=== PATIENT | male | born 1950 | race Caucasian/White ===

== ENCOUNTER → 2017-01-07 | Outpatient (CLI) | payer OTHER ==
[~2017-01-07] MED LIST: BICALUTAMIDE50 MG PO; CIPROFLOXACIN500 M1 PO; CONSTULOSE10 GM/15 M PO; DEXAMETHASONE4 MG PO; DOCUSATE SODIU100 MG PO; ONDANSETRON HCL8 MG PO; OXYCODONE HCL10 MG PO; PERCOCET 5/31 TABLET PO; PROCHLORPERAZIN10 MG PO; ROXICODONE5 MG PO; SENNA8.6 M1 PO
== END | disposition home or self-care (01) ==
LOC: NUC 08:52
DX: C61 Malignant neoplasm of prostate (principal); C79.51 Secondary malignant neoplasm of bone
CPT/HCPCS: 78306; A9503

== ENCOUNTER 2017-02-03 17:02 | Emergency (ER) | payer OTHER ==
[~2017-02-03] VITALS: Ht 172.7 cm; Wt 76.4 kg
[2017-02-03] MEDS ORDERED: BACLOFEN10 MG PO (21:04)
[2017-02-03 21:25] VITALS: BP 140/98
== END 2017-02-03 21:26 | disposition home or self-care (01) ==
LOC: EME 17:02
DX: M54.5 Low back pain (principal); M62.830 Muscle spasm of back; C61 Malignant neoplasm of prostate; C79.51 Secondary malignant neoplasm of bone
CPT/HCPCS: 99281; 99284; J1885; J3360

== ENCOUNTER 2017-07-07 14:24 | Inpatient (IN) | payer OTHER ==
[~2017-07-07] VITALS: Ht 172.7 cm; Wt 71.6 kg
[~2017-07-07 14:24] MED LIST changes: +BACLOFEN10 MG PO
[2017-07-07 15:24] LABS: EOSINOPHIL (%) 1.3 % (0-5); EOSINOPHIL COUNT 0.1 K/uL (0-0.3); IMMATURE GRANULOCYTE (%) 1.1 % (0.0-0.7); INSTRUMENT ABS NEUTROPHIL CT 2.8 K/uL; LYMPHOCYTE COUNT 0.2 K/uL (1.0-2.8); MCH 31.3 PG (29.0-34.0); MCHC 33.7 G/DL (30.0-36.0); MCV 92.8 FL (86-99); MEAN PLAT.VOLUME 8.8 uM^3 (9.0-12.4); MONOCYTE (%) 17.5 % (3-12); MONOCYTE COUNT 0.7 K/uL (0-0.8); NEUTROPHIL (%) 74.8 % (45-76); NEUTROPHIL COUNT 2.8 K/uL (1.8-6.4); PLATELET COUNT 111 K/uL (156-360); RBC DIS.WIDTH-CV 14.9 % (11.8-14.6); RBC DIS.WIDTH-SD 51.2 % (39-53); RED BLOOD COUNT 3.77 M/uL (4.00-5.50); WHITE BLOOD COUNT 3.8 K/uL (4.1-10.2)
[2017-07-07 15:29] LABS: CHLORIDE 113 mEq/L (99-109); POTASSIUM 3.8 mEq/L (3.7-5.4); SODIUM 146 mEq/L (136-147)
[2017-07-07 15:31] LABS: GLUCOSE 99 mg/dL (70-99)
[2017-07-07 15:32] LABS: ANION GAP 10 MEQ/L (2-14)
[2017-07-07 15:35] LABS: GFR ESTIMATE (CALCULATED) > 59 mL/min/
[2017-07-07 15:36] LABS: UREA NITROGEN (BUN) 12 mg/dL (9-23)
[2017-07-07] MEDS ORDERED: OXYCODONE HCL10 MG PO (18:22)
[2017-07-07] MEDS ORDERED: FENTANYL1 EAC2 TD (18:22)
[2017-07-07 23:07] VITALS: BP 131/81
[2017-07-08 04:05] VITALS: BP 139/82
[2017-07-08 06:45] LABS: HEMATOCRIT 38.1 % (38.0-50.0); MCH 32.3 PG (29.0-34.0); MCHC 34.1 G/DL (30.0-36.0); MCV 94.8 FL (86-99); MEAN PLAT.VOLUME 8.5 uM^3 (9.0-12.4); PLATELET COUNT 96 K/uL (156-360); RBC DIS.WIDTH-CV 14.7 % (11.8-14.6); RBC DIS.WIDTH-SD 50.7 % (39-53); RED BLOOD COUNT 4.02 M/uL (4.00-5.50); WHITE BLOOD COUNT 5.1 K/uL (4.1-10.2)
[2017-07-08 07:10] LABS: ANION GAP 10 MEQ/L (2-14); CHLORIDE 110 MEQ/L (99-109); GFR ESTIMATE (CALCULATED) > 59 mL/min/; GLUCOSE 133 mg/dL (70-99); POTASSIUM 4.2 MEQ/L (3.7-5.4); SAMPLE HEMOLYSIS CHECK 0; SAMPLE ICTERIC CHECK 0; SAMPLE LIPEMIA CHECK 0; SODIUM 144 MEQ/L (136-147); UREA NITROGEN (BUN) 12 mg/dL (9-23)
[2017-07-08 07:25] VITALS: BP 140/75
[2017-07-08 07:35] LABS: ADD MIUA? NO; BILIRUBIN NEGATIVE; BLOOD NEGATIVE; COLOR YELLOW ((YELLOW)); GLUCOSE (STRIP) NEGATIVE; KETONES NEGATIVE; LEUKOCYTES NEGATIVE; NITRITE NEGATIVE; PROTEIN (STRIP) NEGATIVE; SPECIFIC GRAVITY 1.018 (1.000-1.030); UCUL ADDED? NO; UROBILINOGEN 0.2 MG/DL (0.2-1.0)
[2017-07-08] MEDS ORDERED: FENTANYL1 EAC2 TD (09:36)
[2017-07-08 11:00] VITALS: BP 124/67
[2017-07-08] MEDS ORDERED: COMPAZINE10 MG PO (11:00)
[2017-07-08] MEDS ORDERED: SENOKOT S,PE1 TABLET PO (11:00)
[2017-07-08] MEDS ORDERED: ADVIL,NUPRIN,M200 MG PO (11:01)
[2017-07-08] MEDS ORDERED: MILK OF MAGN PO (11:02)
[2017-07-08 16:07] VITALS: BP 115/60
[2017-07-08 22:51] VITALS: BP 125/76
[2017-07-09 06:34] LABS: MCHC 33.4 G/DL (30.0-36.0); MCV 92.8 FL (86-99); MEAN PLAT.VOLUME 8.5 uM^3 (9.0-12.4); PLATELET COUNT 105 K/uL (156-360); RBC DIS.WIDTH-CV 14.4 % (11.8-14.6); RBC DIS.WIDTH-SD 48.1 % (39-53); RED BLOOD COUNT 3.77 M/uL (4.00-5.50)
[2017-07-09 06:56] LABS: ANION GAP 7 MEQ/L (2-14); CHLORIDE 106 MEQ/L (99-109); GFR ESTIMATE (CALCULATED) > 59 mL/min/; GLUCOSE 116 mg/dL (70-99); POTASSIUM 4.4 MEQ/L (3.7-5.4); SAMPLE HEMOLYSIS CHECK 0; SAMPLE ICTERIC CHECK 0; SAMPLE LIPEMIA CHECK 0; SODIUM 139 MEQ/L (136-147); UREA NITROGEN (BUN) 13 mg/dL (9-23)
[2017-07-09 07:09] VITALS: BP 139/79
[2017-07-09 16:28] VITALS: BP 132/68
[2017-07-09 23:24] VITALS: BP 126/73
[2017-07-10 07:13] VITALS: BP 145/92
[2017-07-10] MEDS ORDERED: DECADRON4 MG PO (08:05)
== END 2017-07-10 14:28 | disposition home health service (06) | DRG 543 ==
LOC: EME 14:24 → EDOF 20:16 → 5EAST 20:16 → ENRESERV 20:19 → 5EAST 22:40 → ENPENDDIS 07-10 → 5EAST 07-10 14:28
PROVIDERS: Emergency Medicine; Hospitalist
DX: C79.51 Secondary malignant neoplasm of bone (principal); G95.29 Other cord compression; M48.04 Spinal stenosis, thoracic region; C61 Malignant neoplasm of prostate; G89.3 Neoplasm related pain (acute) (chronic); M21.379 Foot drop, unspecified foot; R27.0 Ataxia, unspecified; K59.00 Constipation, unspecified; M51.36 Other intervertebral disc degeneration, lumbar region; F41.9 Anxiety disorder, unspecified; Z92.3 Personal history of irradiation; Z92.21 Personal history of antineoplastic chemotherapy
CPT/HCPCS: 72157; 72158; 80048; 81003; 85025; 85027; 99281; 99285; J1100; J1650; J2060

== ENCOUNTER 2017-09-20 15:25 | Inpatient (IN) | payer OTHER ==
[~2017-09-20] VITALS: Ht 172.7 cm; Wt 67.6 kg
[~2017-09-20 15:25] MED LIST changes: +ADVIL,NUPRIN,M200 MG PO; +COMPAZINE10 MG PO; +DECADRON4 MG PO; +FENTANYL1 EAC2 TD; +MILK OF MAGN PO; +SENOKOT S,PE1 TABLET PO
[2017-09-20 16:44] LABS: EOSINOPHIL (%) 0.9 % (0-5); EOSINOPHIL COUNT 0.1 K/uL (0-0.3); HEMATOCRIT 30.6 % (38.0-50.0); IMMATURE GRANULOCYTE (%) 0.4 % (0.0-0.7); INSTRUMENT ABS NEUTROPHIL CT 6.6 K/uL; LYMPHOCYTE COUNT 0.2 K/uL (1.0-2.8); MCH 31.4 PG (29.0-34.0); MEAN PLAT.VOLUME 8.5 uM^3 (9.0-12.4); MONOCYTE (%) 13.1 % (3-12); NEUTROPHIL COUNT 6.6 K/uL (1.8-6.4); PLATELET COUNT 280 K/uL (156-360); RBC DIS.WIDTH-CV 13.7 % (11.8-14.6); RBC DIS.WIDTH-SD 48.3 % (39-53); RED BLOOD COUNT 3.22 M/uL (4.00-5.50)
[2017-09-20 16:51] LABS: INTER. NORMALIZED RATIO 1.1; PROTHROMBIN TIME 12.5 SEC (10.2-12.9)
[2017-09-20 16:53] LABS: CHLORIDE 101 mEq/L (99-109); POTASSIUM 3.9 mEq/L (3.7-5.4); SODIUM 132 mEq/L (136-147)
[2017-09-20 16:54] LABS: PTT 27.1 SEC (25-37)
[2017-09-20 16:55] LABS: GLUCOSE 115 mg/dL (70-99)
[2017-09-20 16:57] LABS: ANION GAP 7 MEQ/L (2-14); TOTAL BILIRUBIN 0.6 mg/dL (0.0-1.0)
[2017-09-20 16:59] LABS: ALKALINE PHOSPHATASE 76 IU/L (3-129); GFR ESTIMATE (CALCULATED) > 59 mL/min/
[2017-09-20 17:00] LABS: UREA NITROGEN (BUN) 6 mg/dL (9-23)
[2017-09-20 17:02] LABS: LIPASE 2 U/L (1.0-51.0)
[2017-09-20 17:05] LABS: TROP-I INTERPRETATION NEGATIVE; TROPONIN-I 0.01 ng/mL (0.0-0.30)
[2017-09-20 18:42] LABS: ADD MIUA? NO; BILIRUBIN NEGATIVE; BLOOD NEGATIVE; COLOR YELLOW ((YELLOW)); GLUCOSE (STRIP) NEGATIVE; KETONES 20; LEUKOCYTES NEGATIVE; NITRITE NEGATIVE; PROTEIN (STRIP) 30; SPECIFIC GRAVITY 1.019 (1.000-1.030); UCUL ADDED? NO; UROBILINOGEN 0.2 MG/DL (0.2-1.0)
[2017-09-20] MEDS ORDERED: ONDANSETRON HCL4 MG PO (20:53)
[2017-09-20 23:12] LABS: TROP-I INTERPRETATION NEGATIVE; TROPONIN-I < 0.01 ng/mL (0.0-0.30)
[2017-09-21] VITALS (7 sets, daily range): BP systolic 142–194; BP diastolic 64–91
[2017-09-21 06:02] LABS: HEMATOCRIT 30.2 % (38.0-50.0); MCH 31.8 PG (29.0-34.0); MCHC 33.8 G/DL (30.0-36.0); MCV 94.1 FL (86-99); MEAN PLAT.VOLUME 8.6 uM^3 (9.0-12.4); PLATELET COUNT 255 K/uL (156-360); RBC DIS.WIDTH-CV 13.5 % (11.8-14.6); RBC DIS.WIDTH-SD 46.7 % (39-53); RED BLOOD COUNT 3.21 M/uL (4.00-5.50); WHITE BLOOD COUNT 7.3 K/uL (4.1-10.2)
[2017-09-21 06:14] LABS: INTER. NORMALIZED RATIO 1.2; PROTHROMBIN TIME 13.3 SEC (10.2-12.9)
[2017-09-21 06:33] LABS: TROP-I INTERPRETATION NEGATIVE; TROPONIN-I < 0.01 ng/mL (0.0-0.30)
[2017-09-21 07:35] LABS: ALKALINE PHOSPHATASE 64 IU/L (3-129); CHLORIDE 102 MEQ/L (99-109); GLUCOSE 151 mg/dL (70-99); POTASSIUM 4.3 MEQ/L (3.7-5.4); SAMPLE HEMOLYSIS CHECK 0; SAMPLE ICTERIC CHECK 0; SAMPLE LIPEMIA CHECK 0; SODIUM 135 MEQ/L (136-147); TOTAL BILIRUBIN 0.6 MG/DL (0.0-1.0); UREA NITROGEN (BUN) 5 mg/dL (9-23)
[2017-09-21 08:13] LABS: GFR ESTIMATE (CALCULATED) > 59 mL/min/
[2017-09-21 08:16] LABS: ANION GAP 8 MEQ/L (2-14)
[2017-09-22 03:55] VITALS: BP 185/85
[2017-09-22 06:09] LABS: EOSINOPHIL (%) 0 % (0-5); HEMATOCRIT 30.7 % (38.0-50.0); IMMATURE GRANULOCYTE (%) 0.4 % (0.0-0.7); INSTRUMENT ABS NEUTROPHIL CT 7.1 K/uL; LYMPHOCYTE COUNT 0.2 K/uL (1.0-2.8); MCH 32.3 PG (29.0-34.0); MCHC 34.5 G/DL (30.0-36.0); MCV 93.6 FL (86-99); MEAN PLAT.VOLUME 8.7 uM^3 (9.0-12.4); MONOCYTE (%) 12.4 % (3-12); NEUTROPHIL (%) 84.9 % (45-76); NEUTROPHIL COUNT 7.1 K/uL (1.8-6.4); PLATELET COUNT 310 K/uL (156-360); RBC DIS.WIDTH-CV 13.8 % (11.8-14.6); RBC DIS.WIDTH-SD 47.3 % (39-53); RED BLOOD COUNT 3.28 M/uL (4.00-5.50); WHITE BLOOD COUNT 8.3 K/uL (4.1-10.2)
[2017-09-22 06:47] LABS: ANION GAP 10 MEQ/L (2-14); CHLORIDE 103 MEQ/L (99-109); GFR ESTIMATE (CALCULATED) > 59 mL/min/; GLUCOSE 136 mg/dL (70-99); POTASSIUM 3.8 MEQ/L (3.7-5.4); SAMPLE HEMOLYSIS CHECK 0; SAMPLE ICTERIC CHECK 0; SAMPLE LIPEMIA CHECK 0; SODIUM 137 MEQ/L (136-147); UREA NITROGEN (BUN) 5 mg/dL (9-23)
[2017-09-22 19:48] VITALS: BP 134/81
[2017-09-23] VITALS (7 sets, daily range): BP systolic 137–184; BP diastolic 77–94
[2017-09-24 03:53] VITALS: BP 173/81
[2017-09-24 06:55] VITALS: BP 173/87
[2017-09-24 10:01] LABS: HEMATOCRIT 31.2 % (38.0-50.0); MCH 31.4 PG (29.0-34.0); MCHC 33.7 G/DL (30.0-36.0); MCV 93.4 FL (86-99); MEAN PLAT.VOLUME 8.6 uM^3 (9.0-12.4); PLATELET COUNT 334 K/uL (156-360); RBC DIS.WIDTH-CV 13.7 % (11.8-14.6); RBC DIS.WIDTH-SD 46.7 % (39-53); RED BLOOD COUNT 3.34 M/uL (4.00-5.50); WHITE BLOOD COUNT 6.3 K/uL (4.1-10.2)
[2017-09-24 10:27] LABS: ANION GAP 7 MEQ/L (2-14); CHLORIDE 102 MEQ/L (99-109); GFR ESTIMATE (CALCULATED) > 59 mL/min/; GLUCOSE 133 mg/dL (70-99); POTASSIUM 4.1 MEQ/L (3.7-5.4); SAMPLE HEMOLYSIS CHECK 0; SAMPLE ICTERIC CHECK 0; SAMPLE LIPEMIA CHECK 0; SODIUM 136 MEQ/L (136-147); UREA NITROGEN (BUN) 15 mg/dL (9-23)
[2017-09-24 11:37] VITALS: BP 166/77
[2017-09-24 15:00] VITALS: BP 175/83
[2017-09-24 19:30] VITALS: BP 188/82
[2017-09-24 23:13] VITALS: BP 159/72
[2017-09-25] VITALS (7 sets, daily range): BP systolic 138–181; BP diastolic 73–89
[2017-09-25 09:01] LABS: HEMATOCRIT 31.4 % (38.0-50.0); MCHC 33.1 G/DL (30.0-36.0); MCV 93.5 FL (86-99); MEAN PLAT.VOLUME 8.5 uM^3 (9.0-12.4); PLATELET COUNT 314 K/uL (156-360); RBC DIS.WIDTH-CV 13.8 % (11.8-14.6); RBC DIS.WIDTH-SD 47.2 % (39-53); RED BLOOD COUNT 3.36 M/uL (4.00-5.50); WHITE BLOOD COUNT 5.7 K/uL (4.1-10.2)
[2017-09-25 09:27] LABS: ANION GAP 10 MEQ/L (2-14); CHLORIDE 105 MEQ/L (99-109); GFR ESTIMATE (CALCULATED) > 59 mL/min/; GLUCOSE 122 mg/dL (70-99); SAMPLE HEMOLYSIS CHECK 0; SAMPLE ICTERIC CHECK 0; SAMPLE LIPEMIA CHECK 0; SODIUM 136 MEQ/L (136-147); UREA NITROGEN (BUN) 15 mg/dL (9-23)
[2017-09-26 06:21] LABS: EOSINOPHIL (%) 0 % (0-5); HEMATOCRIT 32.2 % (38.0-50.0); IMMATURE GRANULOCYTE (%) 1.3 % (0.0-0.7); IMMATURE GRANULOCYTE COUNT 0.1 K/uL; INSTRUMENT ABS NEUTROPHIL CT 4.7 K/uL; LYMPHOCYTE COUNT 0.1 K/uL (1.0-2.8); MCH 30.5 PG (29.0-34.0); MCHC 32.6 G/DL (30.0-36.0); MCV 93.6 FL (86-99); MEAN PLAT.VOLUME 8.7 uM^3 (9.0-12.4); MONOCYTE (%) 9.1 % (3-12); MONOCYTE COUNT 0.5 K/uL (0-0.8); NEUTROPHIL COUNT 4.7 K/uL (1.8-6.4); NRBC (%) 0.4 /100 WBC (0-0); PLATELET COUNT 310 K/uL (156-360); RBC DIS.WIDTH-SD 47.3 % (39-53); RED BLOOD COUNT 3.44 M/uL (4.00-5.50); WHITE BLOOD COUNT 5.4 K/uL (4.1-10.2)
[2017-09-26 06:34] LABS: ANION GAP 12 MEQ/L (2-14); CHLORIDE 106 MEQ/L (99-109); GFR ESTIMATE (CALCULATED) > 59 mL/min/ (58.99-99999); GLUCOSE 119 mg/dL (70-99); SAMPLE HEMOLYSIS CHECK 0; SAMPLE ICTERIC CHECK 0; SAMPLE LIPEMIA CHECK 0; SODIUM 137 MEQ/L (136-147); UREA NITROGEN (BUN) 14 mg/dL (9-23)
[2017-09-26 07:47] VITALS: BP 137/75
[2017-09-26 11:50] VITALS: BP 180/83
[2017-09-26 12:35] VITALS: BP 165/82
[2017-09-26 16:22] VITALS: BP 183/84
[2017-09-26 19:38] VITALS: BP 176/84
[2017-09-26 22:56] VITALS: BP 176/86
[2017-09-27 06:48] VITALS: BP 160/88
[2017-09-27 10:12] LABS: ANION GAP 10 MEQ/L (2-14); CHLORIDE 107 MEQ/L (99-109); GFR ESTIMATE (CALCULATED) > 59 mL/min/ (58.99-99999); GLUCOSE 111 mg/dL (70-99); POTASSIUM 3.9 MEQ/L (3.7-5.4); SAMPLE HEMOLYSIS CHECK 0; SAMPLE ICTERIC CHECK 0; SAMPLE LIPEMIA CHECK 0; SODIUM 136 MEQ/L (136-147); UREA NITROGEN (BUN) 15 mg/dL (9-23)
[2017-09-27 12:55] VITALS: BP 184/84
[2017-09-27 15:30] VITALS: BP 158/83
[2017-09-28 00:10] VITALS: BP 168/74
[2017-09-28 06:49] VITALS: BP 142/82
[2017-09-28 09:36] LABS: HEMATOCRIT 35.2 % (38.0-50.0); MCH 31.5 PG (29.0-34.0); MCHC 33.8 G/DL (30.0-36.0); MCV 93.1 FL (86-99); MEAN PLAT.VOLUME 8.6 uM^3 (9.0-12.4); PLATELET COUNT 321 K/uL (156-360); RBC DIS.WIDTH-CV 14.2 % (11.8-14.6); RBC DIS.WIDTH-SD 48.8 % (39-53); RED BLOOD COUNT 3.78 M/uL (4.00-5.50); WHITE BLOOD COUNT 6.6 K/uL (4.1-10.2)
[2017-09-28 09:58] LABS: ANION GAP 10 MEQ/L (2-14); CHLORIDE 106 MEQ/L (99-109); GFR ESTIMATE (CALCULATED) > 59 mL/min/ (58.99-99999); GLUCOSE 128 mg/dL (70-99); POTASSIUM 3.9 MEQ/L (3.7-5.4); SAMPLE HEMOLYSIS CHECK 0; SAMPLE ICTERIC CHECK 0; SAMPLE LIPEMIA CHECK 0; SODIUM 135 MEQ/L (136-147); UREA NITROGEN (BUN) 14 mg/dL (9-23)
[2017-09-28 15:20] VITALS: BP 188/83
[2017-09-28 23:02] VITALS: BP 176/115
[2017-09-28 23:38] VITALS: BP 142/78
[2017-09-29 06:05] VITALS: BP 140/80
[2017-09-29 07:18] VITALS: BP 131/79
[2017-09-30 00:35] VITALS: BP 164/74
[2017-09-30 05:59] VITALS: BP 166/85
[2017-09-30 07:34] VITALS: BP 145/72
[2017-09-30 23:45] VITALS: BP 142/72
[2017-10-01 05:44] VITALS: BP 123/65
[2017-10-01 06:45] LABS: HEMATOCRIT 37.1 % (38.0-50.0); MCH 31.3 PG (29.0-34.0); MCHC 33.4 G/DL (30.0-36.0); MCV 93.7 FL (86-99); MEAN PLAT.VOLUME 9.1 uM^3 (9.0-12.4); PLATELET COUNT 269 K/uL (156-360); RBC DIS.WIDTH-CV 14.5 % (11.8-14.6); RED BLOOD COUNT 3.96 M/uL (4.00-5.50); WHITE BLOOD COUNT 26.6 K/uL (4.1-10.2)
[2017-10-01 07:10] LABS: ANION GAP 11 MEQ/L (2-14); CHLORIDE 108 MEQ/L (99-109); GFR ESTIMATE (CALCULATED) > 59 mL/min/ (58.99-99999); GLUCOSE 125 mg/dL (70-99); SAMPLE HEMOLYSIS CHECK 0; SAMPLE ICTERIC CHECK 0; SAMPLE LIPEMIA CHECK 0; SODIUM 139 MEQ/L (136-147); UREA NITROGEN (BUN) 16 mg/dL (9-23)
[2017-10-01 07:56] VITALS: BP 124/66
[2017-10-01 13:55] VITALS: BP 136/72
[2017-10-01 18:30] VITALS: BP 125/70
[2017-10-02 07:36] VITALS: BP 122/68
[2017-10-02 08:18] LABS: HEMATOCRIT 38.8 % (38.0-50.0); MCH 31.6 PG (29.0-34.0); MCHC 33.5 G/DL (30.0-36.0); MCV 94.4 FL (86-99); MEAN PLAT.VOLUME 9.5 uM^3 (9.0-12.4); PLATELET COUNT 222 K/uL (156-360); RBC DIS.WIDTH-CV 14.8 % (11.8-14.6); RBC DIS.WIDTH-SD 51.7 % (39-53); RED BLOOD COUNT 4.11 M/uL (4.00-5.50); WHITE BLOOD COUNT 23.2 K/uL (4.1-10.2)
[2017-10-02 08:48] LABS: ANION GAP 10 MEQ/L (2-14); CHLORIDE 111 MEQ/L (99-109); GFR ESTIMATE (CALCULATED) > 59 mL/min/ (58.99-99999); GLUCOSE 108 mg/dL (70-99); POTASSIUM 3.2 MEQ/L (3.7-5.4); SAMPLE HEMOLYSIS CHECK 0; SAMPLE ICTERIC CHECK 0; SAMPLE LIPEMIA CHECK 0; SODIUM 141 MEQ/L (136-147); UREA NITROGEN (BUN) 20 mg/dL (9-23)
[2017-10-02 10:58] LABS: MAGNESIUM 2.2 mg/dl (1.3-2.7)
[2017-10-02 11:34] VITALS: BP 139/66
[2017-10-02 11:35] LABS: EOSINOPHIL (%) 0 % (0-5); IMMATURE GRANULOCYTE (%) 0.3 % (0.0-0.7); IMMATURE GRANULOCYTE COUNT 0.1 K/uL; INSTRUMENT ABS NEUTROPHIL CT 21.7 K/uL; LYMPHOCYTE COUNT 0.1 K/uL (1.0-2.8); MONOCYTE (%) 4.4 % (3-12); NEUTROPHIL (%) 94.7 % (45-76); NEUTROPHIL COUNT 21.7 K/uL (1.8-6.4)
[2017-10-02 16:39] VITALS: BP 109/70
[2017-10-03 00:10] VITALS: BP 108/66
[2017-10-03 05:36] VITALS: BP 120/73
[2017-10-03 06:12] LABS: HEMATOCRIT 44.4 % (38.0-50.0); MCH 31.7 PG (29.0-34.0); MCHC 32.4 G/DL (30.0-36.0); MCV 97.8 FL (86-99); MEAN PLAT.VOLUME 9.6 uM^3 (9.0-12.4); PLATELET COUNT 161 K/uL (156-360); RBC DIS.WIDTH-CV 15.3 % (11.8-14.6); RBC DIS.WIDTH-SD 54.7 % (39-53); RED BLOOD COUNT 4.54 M/uL (4.00-5.50); WHITE BLOOD COUNT 15.2 K/uL (4.1-10.2)
[2017-10-03 06:28] LABS: BASE EXCESS -9.9 mEq/L (-3 to +3); BICARBONATE 12.4 mEq/L (22-26); CARBOXY HGB 2.5 % (0-5); COMMENTS - BLOOD GASES C+; DEVICE NC; METHEMOGLOBIN 1.4 % (0-1.5); O2 FLOW 2 L/MIN; PCO2 20 mm Hg (35-45); PO2 63 mm Hg (80-100); SITE LR
[2017-10-03 06:38] LABS: ANION GAP 13 MEQ/L (2-14); CHLORIDE 110 MEQ/L (99-109); SAMPLE HEMOLYSIS CHECK 0; SAMPLE ICTERIC CHECK 0; SAMPLE LIPEMIA CHECK 0; SODIUM 141 MEQ/L (136-147); UREA NITROGEN (BUN) 29 mg/dL (9-23)
[2017-10-03 06:39] LABS: GFR ESTIMATE (CALCULATED) > 59 mL/min/ (58.99-99999); GLUCOSE 174 mg/dL (70-99); POTASSIUM 4.2 MEQ/L (3.7-5.4)
[2017-10-03 07:11] VITALS: BP 125/70
[2017-10-03 09:22] LABS: POINT-OF-CARE METER ID UU13113725
== END 2017-10-03 09:00 | DRG 981 ==
LOC: EME 15:25 → CANRESERV 20:39 → ENRESERV 20:39 → EDOF 20:42 → 5EAST 20:42 → ENRESERV 20:45 → 5EAST 22:12
PROVIDERS: Emergency Medicine; Hospitalist; Internal Medicine; Physician Assistant; Student in an Organized Health Care Education/Training Program; Surgery
DX: C61 Malignant neoplasm of prostate (principal); I46.9 Cardiac arrest, cause unspecified; C79.51 Secondary malignant neoplasm of bone; C79.31 Secondary malignant neoplasm of brain; J96.01 Acute respiratory failure with hypoxia; G93.6 Cerebral edema; T17.890A Other foreign object in other parts of respiratory tract causing asphyxiation, initial encounter; J90 Pleural effusion, not elsewhere classified; M48.04 Spinal stenosis, thoracic region; J38.01 Paralysis of vocal cords and larynx, unilateral; G95.29 Other cord compression; E87.1 Hypo-osmolality and hyponatremia; R13.10 Dysphagia, unspecified; E87.70 Fluid overload, unspecified; M84.58XA Pathological fracture in neoplastic disease, other specified site, initial encounter for fracture; D72.829 Elevated white blood cell count, unspecified; R97.21 Rising PSA following treatment for malignant neoplasm of prostate; E86.9 Volume depletion, unspecified; J98.11 Atelectasis; R60.0 Localized edema; T38.0X5A Adverse effect of glucocorticoids and synthetic analogues, initial encounter; K63.89 Other specified diseases of intestine; K14.8 Other diseases of tongue; R47.02 Dysphasia; M54.5 Low back pain; G89.3 Neoplasm related pain (acute) (chronic); D63.8 Anemia in other chronic diseases classified elsewhere; M48.061 Spinal stenosis, lumbar region without neurogenic claudication; F32.9 Major depressive disorder, single episode, unspecified; F40.240 Claustrophobia; Z53.8 Procedure and treatment not carried out for other reasons; Z77.090 Contact with and (suspected) exposure to asbestos; Z92.21 Personal history of antineoplastic chemotherapy; Z80.1 Family history of malignant neoplasm of trachea, bronchus and lung
CPT/HCPCS: 31500; 36600; 49405; 70450; 70491; 70553; 71010; 71260; 74150; 74177; 74230; 76000; 77290; 77307; 77331; 77334; 77336; 77412; 77417; 80048; 80053; 81003; 82803; 82948; 83605; 83690; 83735; 84484; 85025; 85027; 85610; 85730; 87040; 92526 GN; 92610 GN; 92611 GN; 92950; 93005; 94799; 96361; 96365; 97530 GO; 97530 GP; 99281; 99285; B4087; C1751; C1769; C9113; G0103; J0171; J0330; J0360; J0780; J1100; J1200; J1650; J1940; J1956; J2060; J2250; J2270; J2405; J2543; J2710; J2765; J3010; J3230; J3489; J7030; J7040; J7042; J7050; S0020; S0074